=== PATIENT | female | born 1965 | race Caucasian/White ===

== ENCOUNTER → 2021-01-28 | Outpatient (CLI) | payer BC ==
[2021-01-28 11:48] LABS: HEMOGLOBIN 14.4 gm/dl (12.3-15.3); RED BLOOD COUNT 4.55 M/UL (4.00-5.10); WHITE BLOOD COUNT 8.1 K/UL (4.5-11.0)
[2021-01-28 12:06] LABS: BUN/CREATININE RATIO 16 (0-10)
[2021-01-29 10:14] LABS: RHEUMATOID ARTHRITIS FACTOR 10.1 IU/mL (0.0-13.9)
== END ==
LOC: LAB 09:33
PROVIDERS: Internal Medicine
DX: M35.1 Other overlap syndromes (principal); R76.8 Other specified abnormal immunological findings in serum; D89.9 Disorder involving the immune mechanism, unspecified; M25.50 Pain in unspecified joint; Z79.899 Other long term (current) drug therapy
CPT/HCPCS: 36415; 80053; 81001; 82570; 83520; 84156; 85025; 85652; 86140; 86200; 86431

== ENCOUNTER → 2021-11-18 | Outpatient (CLI) | payer BC ==
[~2021-11-18] VITALS: Ht 170.2 cm; Wt 52.2 kg
== END ==
LOC: EROP 13:04
DX: U07.1 COVID-19 (principal); Z23 Encounter for immunization
CPT/HCPCS: M0222; Q0222